=== PATIENT | female | born 1995 | race Caucasian/White ===

== ENCOUNTER 2017-04-27 03:55 | Emergency (ER) | payer SELFPAY ==
[2017-04-27 04:41] VITALS: TEMP 97.8
[2017-04-27 05:39] VITALS: BP 122/77; PULSE 132
== END 2017-04-27 05:40 | disposition home or self-care (01) ==
LOC: COL.ER 03:55
DX: O9A.312 Physical abuse complicating pregnancy, second trimester (principal); H57.12 Ocular pain, left eye; R22.0 Localized swelling, mass and lump, head; R10.9 Unspecified abdominal pain; Z3A.23 23 weeks gestation of pregnancy; Y04.2XXA Assault by strike against or bumped into by another person, initial encounter; Y07.01 Husband, perpetrator of maltreatment and neglect